=== PATIENT | male | born 1990 | race African-American/Black ===

== ENCOUNTER 2023-02-27 11:48 | Emergency (ER) | payer MEDICAID ==
[~2023-02-27] VITALS: Ht 175.3 cm; Wt 56.7 kg
[2023-02-27 12:00] VITALS: BP_SYST 181; PULSE 118; RESP 20; TEMP 98; O2SAT 98
[2023-02-27 12:21] LABS: BASOPHILS % (AUTO) 0.4 % (0.0-2.0); EOSINOPHILS % (AUTO) 0.3 % (0.0-4.0); HEMATOCRIT 41.5 % (36-54); HEMOGLOBIN 13.7 g/dL (14.0-18.0); LYMPHOCYTES # (AUTO) 0.7 K/uL (1.0-5.5); LYMPHOCYTES % (AUTO) 9.9 % (20.5-51.5); MEAN CORPUSCULAR HEMOGLOBIN 32 pg (27-31); MEAN CORPUSCULAR HGB CONC 33 % (32-36); MEAN CORPUSCULAR VOLUME 97 fL (79.0-98.0); MONOCYTES # (AUTO) 1.2 K/uL (0.0-1.0); MONOCYTES % (AUTO) 17.1 % (1.7-9.3); NEUTROPHILS # (AUTO) 5.1 K/uL (1.8-7.7); NEUTROPHILS % (AUTO) 72.3 % (40.0-70.0); PLATELET COUNT (AUTO) 231 K/uL (130-430); RED BLOOD CELL COUNT(AUTO) 4.27 MIL/uL (4.2-6.2); RED CELL DISTRIBUTION WIDTH 14.1 % (9.0-15.0); WHITE BLOOD COUNT (AUTO) 7.1 K/uL (4.8-10.8)
[2023-02-27] MEDS ORDERED: LORazepam 2 MG/ML VIAL IVP ONE (12:30)
[2023-02-27] MEDS ORDERED: THIAMINE HCL 100 MG in NS 50 ML IV ONE (12:30)
[2023-02-27] MEDS ORDERED: MULTIVITAMIN/IRON/FOLIC ACID 1 TAB TABLET PO SCH (12:30)
[2023-02-27 12:40] LABS: ALANINE AMINOTRANSFERASE 187 U/L (12-78); ALBUMIN 3.9 g/dL (3.4-4.8); ANION GAP 10 (5-15); ASPARTATE AMINOTRANSFERASE 148 U/L (10-37); CALCIUM 9.7 mg/dL (8.4-11.0); CARBON DIOXIDE 26 mmol/L (23-29); CHLORIDE 102 mmol/L (98-107); CREATININE 0.97 mg/dL (0.55-1.30); GFR AFRICAN AMERICAN 116 mL/min (>90); GFR NON AFRICAN-AMERICAN 96 mL/min (>90); GLUCOSE 126 mg/dL (74-106); POTASSIUM 3.7 mmol/L (3.5-5.1); SODIUM SERUM 138 mmol/L (136-145); TOTAL BILIRUBIN 1.2 mg/dL (0.0-1.0); TOTAL PROTEIN, SERUM 7.2 g/dL (6.4-8.3); UREA NITROGEN, BLOOD 10 mg/dL (8-21)
[2023-02-27 12:44] LABS: ACETAMINOPHEN < 1 ug/mL (1-30); ALCOHOL, BLOOD < 3 mg/dL (<10); SALICYLATE < 1 mg/dL (3-30)
[2023-02-27] MEDS ORDERED: NACL 0.9% 1,000 ML IV ONE (12:45)
[2023-02-27] MEDS ORDERED: ONDA-8 TL (14:01)
[2023-02-27] MEDS ORDERED: LIB25 PO (14:01)
[2023-02-27] MEDS ORDERED: THIAMINE HCL 100 MG/ML VIAL ONE (14:38)
[2023-02-27 14:58] VITALS: BP_SYST 142; PULSE 88; RESP 16; TEMP 97.5; O2SAT 97
[2023-02-28] MEDS ORDERED: MULTIVITS,CA,MINERALS/IRON/FA 1 TABLET PO SCH (09:00)
== END 2023-02-27 14:51 | disposition home or self-care (01) ==
LOC: SED 11:48
DX: F10.231 Alcohol dependence with withdrawal delirium (principal); R74.01 Elevation of levels of liver transaminase levels; R56.9 Unspecified convulsions; Z79.899 Other long term (current) drug therapy; Y90.6 Blood alcohol level of 120-199 mg/100 ml
CPT/HCPCS: 99284; 96374; 96361; 80053; 85025; 36415; 96372; G0482; J2060; J3411; J7030; G0480; G0481